=== PATIENT | male | born 1985 | race African-American/Black ===

== ENCOUNTER 2021-09-02 10:04 | Emergency (ER) | payer BC ==
[2021-09-02] MEDS ORDERED: ETOMIDATE 20 MG/10 ML VIAL IV ONE (10:05)
[2021-09-02] MEDS ORDERED: SUCCINYLCHOLINE 20 MG/ML (10 ML) IV ONE (10:05)
--- OUTSIDE RECORDS SUMMARY | 2021-09-02 10:10 | XMS REPORT | Continuity of Care Document ---
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 18:55:00 Test Item Value Reference Range Interpretation Comments WHITE BLOOD CELL (test 20.6 K/mm3 3.5-11.0 H code = WBC) RED BLOOD CELL (test 5.94 M/mm3 4.70-6.10 N code = RBC) HEMOGLOBIN (test code 16.7 G/DL 12.3-15.9 H = HGB) HEMATOCRIT (test code 49.6 % 35.8-46.7 H = HCT) MEAN CELL VOLUME (test 83.5 Fl 86.3-98.9 L code = MCV) MEAN CELL HGB (test 28.1 pg 28.9-34.4 L code = MCH) MEAN CELL HGB 33.7 G/DL 32.1-34.5 N CONCETRATION (test code = MCHC) RED CELL DISTRIBUTION 18.0 SD 11.5-14.5 H WIDTH (test code = RDW) PLATELET COUNT (test 109.0 K/mm3 150-450 L code = PLT) MEAN PLATELET VOLUME 11.20 fL 7.0-9.6 H (test code = MPV) NEUTROPHIL % (test 88.9 % 40-76 H code = NT%) LYMPHOCYTE % (test 6.7 % 20.5-51.1 L code = LY%) MONOCYTE % (test code 3.6 % 1.7-9.3 N = MO%) EOSINOPHIL % (test 0.8 % 0.0-6.0 N code = EO%) BASOPHIL % (test code 0.0 % 0.0-2.0 N = BA%) NEUTROPHIL # (test 18.26 K/mm3 1.8-7.6 H code = NT#) LYMPHOCYTE # (test 1.4 K/mm3 0.6-3.0 N code = LY#) MONOCYTE # (test code 0.8 K/mm3 0.2-1.5 N = MO#) EOSINOPHIL # (test 0.2 K/mm3 0.0-0.4 N code = EO#) BASOPHIL # (test code 0.0 K/mm3 0.0-0.2 N = BA#) MANUAL DIFF REQUIRED NO DIFF/SCN CRITERIA SLIDE R ANTONIAW (test code = MDIFF) CONSISTA NT WITH AUTO DIFFERENTIAL. CBC W/AUTO [id number] 18:54:00 Test Item Value Reference Range Interpretation Comments WHITE BLOOD CELL (test 20.6 K/mm3 3.5-11.0 H code = WBC) RED BLOOD CELL (test 5.94 M/mm3 4.70-6.10 N code = RBC) HEMOGLOBIN (test code 16.7 G/DL 12.3-15.9 H = HGB) HEMATOCRIT (test code 49.6 % 35.8-46.7 H = HCT) MEAN CELL VOLUME (test 83.5 Fl 86.3-98.9 L code = MCV) MEAN CELL HGB (test 28.1 pg 28.9-34.4 L code = MCH) MEAN CELL HGB 33.7 G/DL 32.1-34.5 N CONCETRATION (test code = MCHC) RED CELL DISTRIBUTION 18.0 SD 11.5-14.5 H WIDTH (test code = RDW) PLATELET COUNT (test 109.0 K/mm3 150-450 L code = PLT) MEAN PLATELET VOLUME 11.20 fL 7.0-9.6 H (test code = MPV) NEUTROPHIL % (test 88.9 % 40-76 H code = NT%) LYMPHOCYTE % (test 6.7 % 20.5-51.1 L code = LY%) MONOCYTE % (test code 3.6 % 1.7-9.3 N = MO%) EOSINOPHIL % (test 0.8 % 0.0-6.0 N code = EO%) BASOPHIL % (test code 0.0 % 0.0-2.0 N = BA%) NEUTROPHIL # (test 18.26 K/mm3 1.8-7.6 H code = NT#) LYMPHOCYTE # (test 1.4 K/mm3 0.6-3.0 N code = LY#) MONOCYTE # (test code 0.8 K/mm3 0.2-1.5 N = MO#) EOSINOPHIL # (test 0.2 K/mm3 0.0-0.4 N code = EO#) BASOPHIL # (test code 0.0 K/mm3 0.0-0.2 N = BA#) MANUAL DIFF REQUIRED NO DIFF/SCN CRITERIA SLIDE R EVIEW (test code = MDIFF) CONSISTA NT WITH AUTO DIFFERENTIAL. CBC W/AUTO [id number] 18:25:00 Test Item Value Reference Range Interpretation Comments WHITE BLOOD CELL (test code = 20.6 K/mm3 3.5-11.0 H WBC) RED BLOOD CELL (test code = RBC) 5.94 M/mm3 4.70-6.10 N HEMOGLOBIN (test code = HGB) 16.7 G/DL 12.3-15.9 H HEMATOCRIT (test code = HCT) 49.6 % 35.8-46.7 H MEAN CELL VOLUME (test code = 83.5 Fl 86.3-98.9 L MCV) MEAN CELL HGB (test code = MCH) 28.1 pg 28.9-34.4 L MEAN CELL HGB CONCETRATION (test 33.7 G/DL 32.1-34.5 N code = MCHC) RED CELL DISTRIBUTION WIDTH (test 18.0 SD 11.5-14.5 H code = RDW) PLATELET COUNT (test code = PLT) 109.0 K/mm3 150-450 L MEAN PLATELET VOLUME (test code = 11.20 fL 7.0-9.6 H MPV) NEUTROPHIL % (test code = NT%) % 40-76 H LYMPHOCYTE % (test code = LY%) % 20.5-51.1 L MONOCYTE % (test code = MO%) % 1.7-9.3 N EOSINOPHIL % (test code = EO%) % 0.0-6.0 N BASOPHIL % (test code = BA%) % 0.0-2.0 N NEUTROPHIL # (test code = NT#) K/mm3 1.8-7.6 H LYMPHOCYTE # (test code = LY#) K/mm3 0.6-3.0 N MONOCYTE # (test code = MO#) K/mm3 0.2-1.5 N EOSINOPHIL # (test code = EO#) K/mm3 0.0-0.4 N BASOPHIL # (test code = BA#) K/mm3 0.0-0.2 N MANUAL DIFF REQUIRED (test code = DIFF/SCN CRITERIA MDIFF) BASIC METABOLIC [id number] 17:45:00 Test Item Value Reference Range Interpretation Comments SODIUM (test code = NA) 140 mmol/L 134-147 N POTASSIUM (test code = K) 5.6 mmol/L 3.4-5.0 H CHLORIDE (test code = CL) 104 mmol/L 100-108 N CARBON DIOXIDE (test code = 25 mmol/L 21-32 N CO2) ANION GAP (test code = GAP) 11.0 GAP calc 4.0-15.0 N GLUCOSE (test code = GLU) 103 MG/DL 70-110 N BLOOD UREA NITROGEN (test code 22 MG/DL 7-18 H = BUN) GLOMERULAR FILTRATION RATE 44 estGFR >60 L (test code = GFR) CREATININE (test code = CREAT) 2.2 MG/DL 0.8-1.3 H CALCIUM (test code = CA) 10.5 MG/DL 8.5-10.1 H HEPATIC FUNCTION [id number] 17:45:00 Test Item Value Reference Range Interpretation Comments TOTAL PROTEIN (test code = PROT) 9.9 G/DL 6.4-8.2 H ALBUMIN (test code = ALB) 5.7 G/DL 3.4-5.0 H BILIRUBIN TOTAL (test code = BILT) 1.70 MG/DL 0.2-1.2 H BILIRUBIN DIRECT (test code = 0.20 MG/DL 0.00-0.30 N BILD) BILIRUBIN INDIRECT (test code = 1.50 MG/DL 0.2-1.2 H BILIND) SGOT/AST (test code = AST) 37 Unit/L 15-37 N SGPT/ALT (test code = ALT) 26 Unit/L 12-78 N ALKALINE PHOSPHATASE TOTAL (test 91 Unit/L 50-136 N code = ALKP) CREATINE KINASE (CK)2019-01-03 17:45:00 Test Item Value Reference Range Interpretation Comments CREATINE KINASE (CK) (test code = 303 Unit/L 26-192 H CK) DRUGS OF ABUSE*OW*2018-09-14 04:12:00 Test Item Value Reference Range Interpretation Comments DRUG SCRN (test code URINE DRUG SCREEN = HDOA) This is an unconfirmed screening result and should not be used for non-medical purposes PHENCYCLID (test Negative NEGATIVE code = GPCP) BENZODIAZE (test Negative NEGATIVE code = GBZO) COCAINE (test code = Negative NEGATIVE GCOC) AMPHETAMIN (test Positive NEGATIVE A code = GAMP) THC (test code = Positive NEGATIVE A GTHC) OPIATES (test code = Negative NEGATIVE SONG) BARBITURAT (test Negative NEGATIVE code = GBAR) TCA (test code = Negative NEGATIVE GTCA) DOAH (test code = URINE DRUG DOAH) SCREEN CUT OFF VALUES Amphetamines 1000 ng/mL Barbituates 300 ng/mL Benzodiazepines 300 ng/mL Cocaine 300 ng/mL Opiates 300 ng/mL Phencyclidine 25 ng/mL THC 50 ng/mL Tricyclic Antidepressants 1000 ng/mL XR ANKLE RIGHT COMPLETE 3 VIEWS *[id number] 03:47:24Xray right ankle and foot 3 views eachLocation Code: [id number]: None availableCLINICAL HISTORY: InjuryFindings: No plain radiographic evidence of an acute fracture or dislocation. Noradiopaque foreign body. Ankle mortise is symmetric. There appears to be aquestionable pes planus deformity.IMPRESSION:No plain radiographic evidence of an acute fracture or dislocationXR FOOT RIGHT COMPLETE 3 VIEWS *OW*2018-09-14 03:47:24Xray right ankle and foot 3 views eachLocation Code: [id number]: None availableCLINICAL HISTORY: InjuryFindings: No plain radiographic evidence of an acute fracture or dislocation. Noradiopaque foreign body. Ankle mortise is symmetric. There appears to be aquestionable pes planus deformity.
[2021-09-02] MEDS ORDERED: Mastisol Adhesive Liq ONE (10:26)
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
[2021-09-02 10:47] VITALS: BP 160/107; TEMP 97.9; O2SAT 100
== END 2021-09-02 10:40 | disposition home or self-care (01) ==
LOC: ER 10:04
DX: Z48.02 Encounter for removal of sutures (principal)
CPT/HCPCS: 99282; J0330

== ENCOUNTER 2022-06-19 17:44 | Emergency (ER) | payer BC ==
--- OUTSIDE RECORDS SUMMARY | 2022-06-19 17:48 | XMS REPORT | Continuity of Care Document ---
:1985 Author Organization [facility] t Address [address] [place] [address] [address] [place] [address] Care Team Providers Name Role Phone JANNY Attending Clinician Unavailable GERONIMO, DR UMANG Chao Attending Clinician Unavailable HANK, DR BARRON Attending Clinician Unavailable HUSSEIN, DR OLIVEROS Attending Clinician Unavailable TAWANDA, DR KAPADIA Attending Clinician Unavailable DAVID, DR JOHN Cueto Attending Clinician Unavailable JANNY Admitting Clinician Unavailable GERONIMO, DR UMANG Chao Admitting Clinician Unavailable HANK, DR BARRON Admitting Clinician Unavailable HUSSEIN, DR OLIVEROS Admitting Clinician Unavailable TAWANDA, DR KAPADIA Admitting Clinician Unavailable DAVID, DR JOHN Cueto Admitting Clinician Unavailable Payers Payer Name Policy Type Policy Number Effective Date Expiration Date S maryanne 0453 [id number] 2021 00:00:00 Problems This patient has no known problems. Allergies, Adverse Reactions, Alerts Allergy Allergy Status Severity Reaction(s) Onset Inactive Treating Comm ents Source Name Type Date Date Clinician No Known DA Active U 2018-0 [facility] No Known DA Active [facility] s Medications This patient [...] Procedure Date / Time Performed Performing Clinician [facility] e REPAIR RT UP LEG SKIN 2021-08-19 00:00:00 [facility] Encounters Start End Encounter Admission Attending Care Care Encounter Source Date/Time Date/Time Type Type Clinicians Facility Department ID 2022-06-09 2022-06-09 Outpatient MEHOP [facility] [id number] [place] 00:00:00 00:00:00 [id number] da [facility] 2021-08-18 2021-08-19 Outpatient E GERONIMO [facility] ECC [id number] [place] 23:07:00 10:08:00 [facility] 2021-03-08 2021-03-09 Outpatient E HANK [facility] MED [id number] [place] 10:56:00 17:13:00 [facility] 2021-01-24 2021-01-24 Outpatient E ARLIN SAVAGE [facility] ECC [id number] [place] 19:34:00 21:44:00 [facility] 2020-02-05 2020-02-05 Outpatient E KANG NEFF [facility] ECC [id number] [place] 02:37:00 04:12:00 [facility] 2018-09-14 2018-09-14 Outpatient E DAVID [facility] ECC [id number] [place] 03:03:00 04:30:00 JOHN [facility] Results Test Description Test Time Test Comments Results Result [facility] e Comments CT ABDOMEN AND 2021-08-18 PELVIS WITH 23:50:02 CONTRAST *OW* [facility] 1985 Sex: M [...] acquired on the CT workstation by the glass technologist. This was performed utilizing MPR software [...] by: Christin Limon MD 08/18/2021 11:50 PM DIESEL FLEET MECHANIC CBC (INCLUDES AUTOMATED DIFFERENTIAL) * 2021-08-18 23:36:00 [...] 9.3 % 0.0-10.0 MetyLyte 8 Panel *OW* [id number] 23:36:00 Test Item Value Reference Range Interpretation [...] XR CHEST 1 VIEW PORTABLE *WW*2021-03-09 07:40:52 [facility] : 1985 Sex: MCHEST, FRONTAL VIEW HISTORY: RhabdomyolysisCOMPARISON: None.FINDINGS: The lungs are clear without consolidation. No pleural effusion or pneumothorax. The heart size is normal. The bones are unremarkable.IMPRESSION:No evidence of acute cardiopulmonary disease.Electronically signed by: Jones Bashir MD 03/09/2021 7:40 AM CDT [id number] METABOLIC PANEL *WW*2021-03-09 06:09:00 Test Item Value Reference Range Interpretation [...] as normal/abnormal . GFR 131 See_Comment [Automated VINCENTIAN (test mL/min/1.73m\S\2 message] The code = GFRAA) system which generated this result transmit kristina reference range : >=90. The reference range was not used to interpret this result as normal/abnormal . EGFR (test code = eGFR BY EGFR) CKD-EPI CALCULATION IS NOT RECOMMENDED FOR PATIENTS UNDER 18 YEARS OF AGE. BUN/CREA (test 12-20 code = BCR) CALCIUM (test code 7.5 mg/dL 8.3-9.5 L = 09D) CPK 2021-03-09 06:01:00 Test Item Value Reference Range Interpretation Comments CPK (test code = 32A) 965 IU/L 39-308 H CBC (INCLUDES AUTOMATED DIFFERENTIAL)*[id number] 05:48:00 Test Item Value Reference Range Interpretation [...] the FDA and the [employer] of the [place] (CAP) are more stringent than those required for this test. Therefore, the result should be interpreted with caution and close attention to other clinical and epidemiological data TROPONIN I OW2021-03-08 11:30:00 Test Item Value Reference Range Interpretation Comments TROPONIN I (test code = A84) <0.050 ng/mL 0.000-0.050 MetyLyte 8 Panel *OW* [id number] 10:27:00 Test Item Value Reference Range Interpretation [...] 26 mmol/L 18-33 MetyLyte 8 Panel *OW* [id number] 08:51:00 Test Item Value Reference Range Interpretation [...] 26 mmol/L 18-33 MetyLyte 8 Panel *OW* [id number] 04:06:00 Test Item Value Reference Range Interpretation [...] code = LEUK) MetyLyte 8 Panel *OW* [id number] 01:35:00 Test Item Value Reference Range Interpretation [...] 22 mmol/L 18-33 GENERAL CHEMISTRY 13 *OW* [id number] 01:02:00 Test Item Value Reference Range Interpretation [...] % 0.0-10.0 H MetyLyte 8 Panel *OW* [id number] 21:29:00 Test Item Value Reference Range Interpretation [...] 24 mmol/L 18-33 GENERAL CHEMISTRY 13 *OW* [id number] 20:47:00 Test Item Value Reference Range Interpretation [...] 6.8 % 0.0-10.0 GENERAL CHEMISTRY 13 *OW* [id number] 03:40:00 Test Item Value Reference Range Interpretation [...] Antidepressants 1000 ng/mL MetyLyte 8 Panel *OW* [id number] 03:23:00 Test Item Value Reference Range Interpretation [...] code = GMID%) 8.2 % 0.0-10.0 URINALYSIS [id number] 19:11:00 Test Item Value Reference Range Interpretation [...] LEUU) Urine Specimen Type: Clean CatchCBC W/AUTO [id number] 18:55:00 Test Item Value Reference Range Interpretation [...] CONSISTA NT WITH AUTO DIFFERENTIAL. CBC W/AUTO [id number] 18:55:00 Test Item Value Reference Range Interpretation [...] MDIFF) CONSISTA NT WITH AUTO DIFFERENTIAL. RBC [id number] 18:55:00 Test Item Value Reference Range Interpretation Comments PLATELET MORPHOLOGY (test code = CLUMPS PLTMORPH) CBC W/AUTO [id number] 18:55:00 Test Item Value Reference Range Interpretation [...] CONSISTA NT WITH AUTO DIFFERENTIAL. CBC W/AUTO [id number] 18:54:00 Test Item Value Reference Range Interpretation [...] CONSISTA NT WITH AUTO DIFFERENTIAL. CBC W/AUTO [id number] 18:25:00 Test Item Value Reference Range Interpretation [...] code = DIFF/SCN CRITERIA MDIFF) BASIC METABOLIC [id number] 17:45:00 Test Item Value Reference Range Interpretation [...] CA) 10.5 MG/DL 8.5-10.1 H HEPATIC FUNCTION [id number] 17:45:00 Test Item Value Reference Range Interpretation [...] ng/mL XR ANKLE RIGHT COMPLETE 3 VIEWS *[id number] 03:47:24Xray right ankle and foot 3 views eachLocation Code: [id number]: None availableCLINICAL HISTORY: I njuryFindings: No plain radiographic evidence of an acute fracture or dislocation. Noradiopaque foreign body. Ankle mortise is symmetric. There appears to be aquestionable pes planus deformity.IMPRESSION:No plain radiographic evidence of an acute fracture or dislocationXR FOOT RIGHT COMPLETE 3 VIEWS *OW*2018-09-14 03:47:24Xray right ankle and foot 3 views eachLocation Code: [id number]: None availableCLINICAL HISTORY: InjuryFindings: No plain radiographic evidence of an acute fracture or dislocation. Noradiopaque foreign body. Ankle mortise is symmetric. There appears to be aquestionable pes planus deformity.
--- NOTE | 2022-06-19 19:06 | RAD REPORT ---
EXAM DESCRIPTION: RAD - Lumbar Spine 3 Views - 06/19/2022 6:59 pm CLINICAL HISTORY: PAIN COMPARISON: No comparisons FINDINGS: No acute fracture. No malalignment. No significant focal degenerative changes. IMPRESSION: No acute osseous abnormality involving the lumbar spine.
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
[2022-06-19] MEDS ORDERED: HYDROCODONE/APAP 7.5/325 MG TAB ONE (19:21)
[2022-06-19] MEDS ORDERED: LIDOCAINE 4% PATCH ONE ×2 (19:23→19:45)
[2022-06-19 19:58] LABS: Urine Blood Negative (Negative); Urine Glucose Negative (Negative); Urine Protein Negative (Negative); Urine pH 8.5 (5.0-7.0)
[2022-06-19 20:20] LABS: Urine Bacteria <20 /HPF (<20); Urine Crystals Unidentified Moderate /HPF (None Seen); Urine RBC <5 /HPF (None Seen)
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
--- NOTE | 2022-06-19 20:55 | RAD REPORT ---
EXAM DESCRIPTION: CT - Foot Left Wo Con - 06/19/2022 8:28 pm CLINICAL HISTORY: dropped dresser on foot COMPARISON: No comparisons FINDINGS: No fracture identified. No malalignment. No radiopaque foreign body. IMPRESSION: No left foot fracture identified.
[2022-06-19] MEDS ORDERED: cloNIDine HCL 0.1 MG TAB ONE (21:47)
[2022-06-19] MEDS ORDERED: hydroCHLOROthiazide 25 MG TAB ONE (21:48)
--- NOTE | 2022-06-19 22:16 | EDPHYS ---
Physician Documentation [facility] Name: Sallie Kaye Age: 37 yrs Sex: Male : 1985 Arrival Date: 06/19/2022 Time: 17:48 Bed 27 Private MD: ED Physician Maurilio Lopes HPI: 06/19 18:05 This 37 yrs old Black Male presents to ER via Ambulatory with complaints of Foot Pain, cp Back Pain. 18:05 The patient presents with pain that is acute, and tenderness. The symptoms are located cp in the low back. 18:05 Onset: The symptoms/episode began/occurred today. The pain does not radiate. The cp problem was sustained started today at work after turning torso. Patient also presents with pain to feet after dropping heavy "drawer" on feet. Dropped drawer on left foot this past Sunday and then drawer on right foot today. Patient reports both incidents occurred at work. Historical: - Allergies: 18:00 No Known Allergies; ld1 - PMHx: 18:00 None; ld1 - PSHx: 18:00 None; ld1 - Immunization history:: Adult Immunizations up to date, Client reports receiving the 2nd dose of the Covid vaccine. - Social history:: Smoking status: Patient reports the use of cigarette tobacco products, smokes one-half pack cigarettes per day, Patient/guardian denies using alcohol. ROS: 18:10 Constitutional: Negative for body aches, chills, fever, poor PO intake. cp 18:10 Eyes: Negative for injury, pain, redness, and discharge. cp 18:10 Neck: Negative for pain with movement, pain at rest, stiffness. 18:10 Cardiovascular: Negative for chest pain, edema, palpitations. 18:10 Respiratory: Negative for cough, shortness of breath, wheezing. 18:10 Abdomen/GI: Negative for abdominal pain, nausea, vomiting, and diarrhea, bowel incontinence. 18:10 Back: Positive for pain at rest, pain with movement, of the low back. 18:10 : Negative for urinary symptoms, difficulty urinating, bladder incontinence, testicular pain 18:10 MS/extremity: Positive for pain, tenderness, of the right foot and left foot, Negative for paresthesias. 18:10 Neuro: Negative for altered mental status, dizziness, headache, numbness, tingling, weakness. 18:10 All other systems are negative. Exam: 18:15 Constitutional: The patient appears in no acute distress, alert, awake, non-toxic, well cp developed, well nourished, uncomfortable. 18:15 Head/Face: Normocephalic, atraumatic. cp 18:15 Neck: ROM/movement: is normal, is supple, without pain, no range of motions limitations, no nuchal rigidity. 18:15 Chest/axilla: Inspection: normal. 18:15 Cardiovascular: Rate: normal, Rhythm: regular, Edema: is not appreciated, JVD: is not appreciated. 18:15 Respiratory: the patient does not display signs of respiratory distress, Respirations: normal, no use of accessory muscles, no retractions, labored breathing, is not present, Breath sounds: are clear throughout, no decreased breath sounds, no stridor, no wheezing. 18:15 Abdomen/GI: Inspection: abdomen appears normal, Bowel sounds: active, all quadrants, Palpation: abdomen is soft and non-tender, in all quadrants. 18:15 Back: pain, that is moderate, of the low back area and mid back area, ROM is painful, with all movement, Straight leg raises: of both lower extremities does not illicit pain. 18:15 Musculoskeletal/extremity: Extremities: grossly normal except: noted in the dorsum of left foot and dorsum of right foot: pain, tenderness, Pulses: noted to be 2+ in the right dorsalis pedis artery and left dorsalis pedis artery, the right foot and left foot Sensation intact. Weight bearing: able to fully bear weight. 18:15 Neuro: Orientation: to person, place \\T\\ time. Mentation: is normal, Motor: moves all fours, strength is normal, Sensation: is normal. Vital Signs: 17:59 Pulse 70; Resp 18; Temp 97.3(TE); Pulse Ox 99% on R/A; Weight 96.62 kg; Height 5 ft. 10 ld1 in. (177.80 cm); Pain 8/10; 18:00 BP 191 / 114; ld1 19:58 BP 177 / 113; Pulse 73; Resp 20; Pulse Ox 99% on R/A; em6 21:30 BP 177 / 118; Pulse 60; Resp 18; Pulse Ox 99% on R/A; em6 22:30 BP 168 / 106; Pulse 64; Resp 20; Pulse Ox 99% on R/A; em6 17:59 Body Mass Index 30.56 (96.62 kg, 177.80 cm) ld1 MDM: 18:09 Patient medically screened. 22:15 Data reviewed: vital signs, nurses notes, lab test result(s), radiologic studies, CT cp scan, plain films. 22:15 Test interpretation: by ED physician or midlevel provider: plain radiologic studies. cp Counseling: I had a detailed discussion with the patient and/or guardian regarding: the historical points, exam findings, and any diagnostic results supporting the discharge/admit diagnosis, lab results, radiology results, the need for outpatient follow up, for definitive care, a family practitioner, to return to the emergency department if symptoms worsen or persist or if there are any questions or concerns that arise at home. Response to treatment: the patient's symptoms have markedly improved after treatment, VSS. Blood pressure improved and pain improved. Radiology studies negative for acute fracture. 06/19 18:03 Order name: Urine Microscopic Only; Complete Time: 20:57 06/19 19:59 Order name: Urine Dipstick-Ancillary; Complete Time: 20:00 [facility]OK 06/19 18:03 Order name: XRAY Foot LEFT 3 View; Complete Time: 19:53 cp 06/19 18:03 Order name: XRAY Foot RIGHT 3 View; Complete Time: 19:53 06/19 18:03 Order name: XRAY Lumbar Spine (3 Views); Complete Time: 19:53 06/19 20:28 Order name: Urine Culture [facility] 06/19 20:09 Order name: Foot Left Wo Con; Complete Time: 20:57 [facility]OK 06/19 20:10 Order name: Foot Right Wo Con; Complete Time: 20:57 [facility] 06/19 21:00 Interpretation: Report reviewed. 06/19 18:03 Order name: Urine Dipstick-Ancillary (obtain specimen); Complete Time: 19:57 06/19 19:53 Order name: Vital Signs: update blood pressure; Complete Time: 20:00 cp Administered Medications: 19:58 Drug: Lidoderm Patch 5 % (700 mg/patch) 1 patches Route: Topical; Site: affected area; em6 20:30 Follow up: Response: No adverse reaction; RASS: Alert and Calm (0) em6 19:58 Drug: Hydrocodone-Acetaminophen (7.5 mg-325 mg) 1 tabs Route: PO; em6 20:30 Follow up: Response: No adverse reaction; RASS: Alert and Calm (0) em6 21:50 Drug: Hydrochlorothiazide 25 mg Route: PO; vc1 22:40 Follow up: Response: No adverse reaction; RASS: Alert and Calm (0) em6 21:50 Drug: cloNIDine 0.1 mg Route: PO; vc1 22:41 Follow up: Response: No adverse reaction em6 Disposition: 18:20 Co-signature as Attending Physician, Maurilio Lopes DO I was immediately available onsite ms3 in the emergency department for consultation in the care of the patient. Disposition Summary: 06/19/22 22:15 Discharge Ordered Location: Home cp Problem: new cp Symptoms: have improved cp Condition: Stable cp Diagnosis - Low back pain cp - Contusion of left foot cp - Contusion of right foot cp - Hypertensive heart disease without heart failure cp Followup: cp - With: Private Physician - When: 2 - 3 days - Reason: Recheck today's complaints Discharge Instructions: - Discharge Summary Sheet cp - Acute Back Pain, Adult cp - Foot Contusion cp - Hypertension, Adult cp - Aspirin and Your Heart cp - Heat Therapy cp - Back Exercises cp - Form - Blood Pressure Record Sheet cp - How to Take Your Blood Pressure cp Forms: - Medication Reconciliation Form cp - Thank You Letter cp - Antibiotic Education cp - Prescription Opioid Use cp Prescriptions: - Lidoderm 5 % Topical adhesive patch,medicated - apply 1 patch by TOPICAL route once daily As needed; 10 patch; Refills: 0, cp Product Selection Permitted - Cyclobenzaprine 10 mg Oral Tablet - take 1 tablet by ORAL route every 8 hours As needed; 30 tablet; Refills: 0, cp Product Selection Permitted - Hydrochlorothiazide 50 mg Oral Tablet - take 1 tablet by ORAL route once daily; 30 tablet; Refills: 0, Product cp Selection Permitted Signatures: Dispatcher [employer] EDMS Lorenzo Barone PA PA cp Sims, Marcus, DO DO ms3 Nhi Anne RN RN ld1 Saima Junior RN RN vc1 Asia Roman RN RN em6 Corrections: (The following items were deleted from the chart) 20:08 20:06 CT LEFT FOOT WO CONTRAST ordered. EDMS EDMS 20:10 20:06 CT RIGHT FOOT WO CONTRAST ordered. EDMS EDMS
--- NOTE | 2022-06-19 22:16 | ER ---
Nurse's Notes [facility] Name: Sallie Kaye Age: 37 yrs Sex: Male : 1985 Arrival Date: 06/19/2022 Time: 17:48 Bed 27 Private MD: Diagnosis: Low back pain;Contusion of left foot;Contusion of right foot;Hypertensive heart disease without heart failure Presentation: 06/19 17:59 Chief complaint: Patient states: C/O back pain \T\ BESSY feet pain. Pt reports twisting ld1 back today at work. Dropped drawer on both feet. Coronavirus screen: At this time, the client does not indicate any symptoms associated with coronavirus-19. Ebola Screen: No symptoms or risks identified at this time. Initial Sepsis Screen: Does the patient meet any 2 criteria? No. Patient's initial sepsis screen is negative. Does the patient have a suspected source of infection? No. Patient's initial sepsis screen is negative. Risk Assessment: Do you want to hurt yourself or someone else? Patient reports no desire to harm self or others. Onset of symptoms was June 19, 2022 at 18:00. 17:59 Method Of Arrival: Ambulatory ld1 17:59 Acuity: ANDREA 4 ld1 Triage Assessment: 18:00 General: Appears in no apparent distress. comfortable, Behavior is calm, cooperative, ld1 appropriate for age. Pain: Complains of pain in back, right foot and left foot Pain does not radiate. Pain currently is 8 out of 10 on a pain scale. Quality of pain is described as throbbing. EENT: Neuro: Level of Consciousness is awake, alert, obeys commands, Oriented to person, place, time, situation. Cardiovascular: Capillary refill < 3 seconds Patient's skin is warm and dry. Respiratory: Airway is patent Respiratory effort is even, unlabored. GI: Abdomen is flat, non-distended. : No signs and/or symptoms were reported regarding the genitourinary system. Derm: No signs and/or symptoms reported regarding the dermatologic system. Historical: - Allergies: 18:00 No Known Allergies; ld1 - PMHx: 18:00 None; ld1 - PSHx: 18:00 None; ld1 - Immunization history:: Adult Immunizations up to date, Client reports receiving the 2nd dose of the Covid vaccine. - Social history:: Smoking status: Patient reports the use of cigarette tobacco products, smokes one-half pack cigarettes per day, Patient/guardian denies using alcohol. Screenin:00 Abuse screen: Denies threats or abuse. Nutritional screening: No deficits noted. em6 Tuberculosis screening: No symptoms or risk factors identified. Fall Risk Total Valladares Fall Scale indicates No Risk (0-24 pts). Assessment: 20:00 General: Appears in no apparent distress. Behavior is cooperative. Pain: Complains of em6 pain in left foot and right foot and back Pain does not radiate. Pain currently is 10 out of 10 on a pain scale. Neuro: Level of Consciousness is awake, alert, obeys commands, Oriented to person, place, time, situation. Cardiovascular: Patient's skin is warm and dry. Respiratory: Airway is patent Respiratory effort is even, unlabored, Respiratory pattern is regular, symmetrical. GI: No signs and/or symptoms were reported involving the gastrointestinal system. : No signs and/or symptoms were reported regarding the genitourinary system. EENT: No signs and/or symptoms were reported regarding the EENT system. Derm: No signs and/or symptoms reported regarding the dermatologic system. Musculoskeletal: Circulation, motion, and sensation intact. Range of motion: intact in all extremities. 21:00 Reassessment: Patient appears in no apparent distress at this time. No changes from em6 previously documented assessment. Patient and/or family updated on plan of care and expected duration. Pain level reassessed. Patient is alert, oriented x 3, equal unlabored respirations, skin warm/dry/pink. 22:00 Reassessment: Patient appears in no apparent distress at this time. No changes from em6 previously documented assessment. Patient and/or family updated on plan of care and expected duration. Pain level reassessed. Patient is alert, oriented x 3, equal unlabored respirations, skin warm/dry/pink. Vital Signs: 17:59 Pulse 70; Resp 18; Temp 97.3(TE); Pulse Ox 99% on R/A; Weight 96.62 kg; Height 5 ft. 10 ld1 in. (177.80 cm); Pain 8/10; 18:00 BP 191 / 114; ld1 19:58 BP 177 / 113; Pulse 73; Resp 20; Pulse Ox 99% on R/A; em6 21:30 BP 177 / 118; Pulse 60; Resp 18; Pulse Ox 99% on R/A; em6 22:30 BP 168 / 106; Pulse 64; Resp 20; Pulse Ox 99% on R/A; em6 17:59 Body Mass Index 30.56 (96.62 kg, 177.80 cm) ld1 ED Course: 17:48 Patient arrived in ED. mr 17:48 Lorenzo Barone PA is PHCP. cp 17:49 Maurilio Lopes DO is Attending Physician. cp 17:59 Arm band placed on right wrist. ld1 18:00 Triage completed. ld1 19:01 XRAY Foot LEFT 3 View In Process Unspecified. EDMS 19:01 XRAY Foot RIGHT 3 View In Process Unspecified. EDMS 19:01 XRAY Lumbar Spine (3 Views) In Process Unspecified. EDMS 20:00 Bed in low position. Call light in reach. Side rails up X 1. Pulse ox on. NIBP on. Warm em6 blanket given. 20:00 Urine Microscopic Only Sent. em6 20:30 Foot Left Wo Con In Process Unspecified. EDMS 20:30 Foot Right Wo Con In Process Unspecified. EDMS 21:45 Saima Junior, RN is Primary Nurse. vc1 22:41 No provider procedures requiring assistance completed. Patient did not have IV access em6 during this emergency room visit. Administered Medications: 19:58 Drug: Lidoderm Patch 5 % (700 mg/patch) 1 patches Route: Topical; Site: affected area; em6 20:30 Follow up: Response: No adverse reaction; RASS: Alert and Calm (0) em6 19:58 Drug: Hydrocodone-Acetaminophen (7.5 mg-325 mg) 1 tabs Route: PO; em6 20:30 Follow up: Response: No adverse reaction; RASS: Alert and Calm (0) em6 21:50 Drug: Hydrochlorothiazide 25 mg Route: PO; vc1 22:40 Follow up: Response: No adverse reaction; RASS: Alert and Calm (0) em6 21:50 Drug: cloNIDine 0.1 mg Route: PO; vc1 22:41 Follow up: Response: No adverse reaction em6 Medication: 22:02 VIS not applicable for this client. em6 Outcome: 22:15 Discharge ordered by . cp 22:41 Discharged to home ambulatory. em6 22:41 Condition: stable 22:41 Discharge instructions given to patient, Instructed on discharge instructions, follow up and referral plans. medication usage, Demonstrated understanding of instructions, follow-up care, medications, Prescriptions given X 3. 22:42 Patient left the ED. em6 Signatures: Dispatcher [employer] EDTX Freda Tinoco mr Lorenzo Barone PA PA Nhi Craig RN RN ld1 Saima Junior RN RN vc1 Asia Roman RN RN em6 Corrections: (The following items were deleted from the chart) 18:02 17:59 BP 136 / 89; Pulse 70bpm; Resp 18bpm; Pulse Ox 99% RA; Temp 97.3F Temporal; 96.62 ld1 kg; Height 5 ft. 10 in.; BMI: 30.5; Pain 8/10; ld1
[2022-06-19 23:23] VITALS: TEMP 97.3; O2SAT 99
[2022-06-19 23:27] VITALS: BP 168/106
== END 2022-06-19 22:42 | disposition home or self-care (01) ==
LOC: ER 17:44
DX: S90.32XA Contusion of left foot, initial encounter (principal); S90.31XA Contusion of right foot, initial encounter; M54.50 Low back pain, unspecified; I11.9 Hypertensive heart disease without heart failure; F17.210 Nicotine dependence, cigarettes, uncomplicated
CPT/HCPCS: 87088; 87086; 73700 ×2; 72100; 73630 ×2; J2001 ×2; 81003; 81015; 99284